=== PATIENT | male | born 1945 | race Asian ===

== ENCOUNTER 2024-05-16 09:53 | Day surgery (SDC) | payer OTHER, MEDICARE ==
[2024-05-16] MEDS: LEUPROLIDE ACETATE (ELIGARD) 22.5 MG SYRINGE SQ ONE (10:17)
[2024-05-16 11:07] VITALS: BP 136/71; PULSE 68; RESP 20; TEMP 97.9
== END 2024-05-16 10:35 | disposition home or self-care (01) ==
LOC: JONCNONCHE 09:53 → J7W 09:55 → JONCNONCHE 10:35
PROVIDERS: ATTEND Internal Medicine Hematology & Oncology
PROC: 3E013GC Introduction of Other Therapeutic Substance into Subcutaneous Tissue, Percutaneous Approach (ICD-10-PCS; principal; 2024-05-16)
DX: C61 Malignant neoplasm of prostate (principal); Z76.89 Persons encountering health services in other specified circumstances
CPT/HCPCS: 96372; J9217

== ENCOUNTER 2024-08-12 10:40 | Inpatient (IN) | payer OTHER, MEDICARE ==
[2024-08-12 10:47] VITALS: BMI 27.4
[2024-08-12 12:39] LABS: BASO % 0.7 % (0-2.0); EOS % 1.3 % (0-4.5); HEMATOCRIT 37.4 % (35.4-49); HEMOGLOBIN 12.2 GM/dL (11.7-16.9); LYMPH % 8.3 % (8-40); MCH 29.1 pg (25.7-33.7); MCHC 32.7 g/dl (32.0-35.9); MEAN CELL VOLUME 89.2 fl (80-96); MEAN PLT VOLUME 7.3 fl (7.5-11.1); MONO % 8.2 % (3.8-10.2); NEUT % 81.5 % (42.8-82.8); PLATELET COUNT 193 10^3/uL (134-434); RBC 4.19 M/mm3 (4.00-5.60); RDW 15.7 % (11.9-15.9); WHITE BLOOD COUNT 9.1 K/mm3 (4.0-10.0)
[2024-08-12 12:46] LABS: EPI CELLS 4 /uL (0-25.1); HYALINE CASTS 0 /uL (0-3.1); PH,URINE 5.5 (5.0-8.0); URINE APPEARANCE CLEAR; URINE BACTERIA 1 /uL (0-1359); URINE BILIRUBIN NEGATIVE (NEGATIVE); URINE COLOR RED; URINE GLUCOSE (UA) 2+ (NEGATIVE); URINE KETONE NEGATIVE (NEGATIVE); URINE LEUK ESTERASE TRACE (NEGATIVE); URINE NITRITE NEGATIVE (NEGATIVE); URINE PROTEIN 3+ (NEGATIVE); URINE RBC 72 /uL (0-23.9); URINE UROBILINOGEN 0.2 mg/dL (0.2-1.0); URINE WBC 12 /uL (0-25.8)
[2024-08-12 13:01] LABS: CHLORIDE 106 mmol/L (98-107); POTASSIUM 5.6 mmol/L (3.5-5.1); SODIUM 136 mmol/L (136-145)
[2024-08-12 13:02] LABS: PROTHROMBIN TIME (PATIENT) 11.3 SEC (9.7-13.0)
[2024-08-12 13:03] LABS: ALBUMIN 3.1 g/dl (3.4-5.0); ANION GAP 14 mmol/L (4-13); CO2 15 mmol/L (21-32); GLUCOSE,RANDOM 165 mg/dL (74-106); MAGNESIUM 3.6 mg/dL (1.8-2.4)
[2024-08-12 13:05] LABS: ACTIVATED PTT 23.8 SECONDS (25.2-36.5)
[2024-08-12 13:06] LABS: BLOOD UREA NITROGEN 123.5 mg/dL (7-18)
[2024-08-12 13:07] LABS: SGOT/AST 853 U/L (15-37); SGPT/ALT 612 U/L (13-61)
[2024-08-12 13:08] LABS: BILIRUBIN,TOTAL 0.7 mg/dL (0.2-1); TOT PROT 6.5 g/dl (6.4-8.2)
[2024-08-12 13:09] LABS: ALK PHOS 80 U/L (45-117); CREATININE 12.8 mg/dL (0.55-1.3)
[2024-08-12] MEDS ORDERED: SODIUM ZIRCONIUM CYCLOSILICATE (LOKELMA) 5 GM PACKET PO ONE (13:15)
[2024-08-12] MEDS: DEXTROSE 50%-WATER - 25 GM/50 ML VIAL IVPUSH ONE (13:16)
[2024-08-12] MEDS: INSULIN REGULAR HUMAN 100 UNITS/ML *VIAL IVPUSH ONE (13:16)
[2024-08-12] MEDS: SODIUM CHLORIDE 0.9% 500 ML INFUS.BAG IV ONE (13:16)
[2024-08-12] MEDS: CALCIUM GLUCONATE 10% - 1,000 MG/10 ML VIAL IVPUSH ONE (13:16)
[2024-08-12] MEDS ORDERED: SODIUM ZIRCONIUM CYCLOSILICATE (LOKELMA) 10 GM PACKET ONE (13:41)
[2024-08-12] MEDS: SODIUM ZIRCONIUM CYCLOSILICATE (LOKELMA) 5 GM PACKET PO ONE (13:43)
[2024-08-12 13:55] LABS: PHOSPHOROUS 9.6 mg/dL (2.5-4.9)
[2024-08-12 14:05] LABS: VENOUS BASE EXCESS -15.6 mmol/L (-2-2); VENOUS O2 SATURATION 37.2 % (70-80); VENOUS PCO2 39.7 mmHg (38-52)
[2024-08-12 14:06] LABS: VENOUS PH 7.127 (7.310-7.410)
[2024-08-12] MEDS: SODIUM CHLORIDE 500 ML IV STA (17:40)
[2024-08-12] MEDS: SODIUM BICARBONATE 8.4% 50 MEQ/50 ML DISP.SYRIN IVPUSH SCH (18:56)
[2024-08-12] MEDS ORDERED: SODIUM BICARBONATE 8.4% 50 MEQ/50 ML DISP.SYRIN IVPUSH SCH (20:30)
[2024-08-12] MEDS: SODIUM BICARBONATE 8.4% 50 MEQ/50 ML VIAL IVPUSH SCH (22:18)
[2024-08-12] MEDS: SODIUM CHLORIDE 1,000 ML IV SCH (22:36)
[2024-08-12 22:44] LABS: HEMATOCRIT 31.7 % (35.4-49); HEMOGLOBIN 10.6 GM/dL (11.7-16.9); MCH 29.3 pg (25.7-33.7); MCHC 33.4 g/dl (32.0-35.9); MEAN CELL VOLUME 87.7 fl (80-96); MEAN PLT VOLUME 7.4 fl (7.5-11.1); PLATELET COUNT 177 10^3/uL (134-434); RBC 3.61 M/mm3 (4.00-5.60); RDW 15.8 % (11.9-15.9)
[2024-08-12] MEDS: SODIUM BICARBONATE 650 MG TABLET PO SCH (22:46)
[2024-08-12] MEDS: CARVEDILOL 12.5 MG TABLET (FP) PO SCH (22:46)
[2024-08-12] MEDS: HEPARIN NA (PORCINE) 5,000 UNITS/ML 1ML VIAL SQ SCH (22:47)
[2024-08-12 23:22] LABS: CHLORIDE 110 mmol/L (98-107); POTASSIUM 4.9 mmol/L (3.5-5.1); SODIUM 139 mmol/L (136-145)
[2024-08-12 23:24] LABS: CALCIUM 8.3 mg/dL (8.5-10.1)
[2024-08-12 23:25] LABS: ALBUMIN 2.5 g/dl (3.4-5.0); ANION GAP 11 mmol/L (4-13); CO2 18 mmol/L (21-32); GLUCOSE,RANDOM 151 mg/dL (74-106)
[2024-08-12 23:28] LABS: SGPT/ALT 523 U/L (13-61)
[2024-08-12 23:29] LABS: BILIRUBIN,TOTAL 0.6 mg/dL (0.2-1); BLOOD UREA NITROGEN 132.7 mg/dL (7-18); CREATININE 13.1 mg/dL (0.55-1.3); SGOT/AST 697 U/L (15-37); TOT PROT 5.3 g/dl (6.4-8.2)
[2024-08-12 23:31] LABS: ALK PHOS 77 U/L (45-117)
[2024-08-13 00:12] LABS: HIV INTERPRETATION NEGATIVE (NEGATIVE)
[2024-08-13] MEDS: SODIUM BICARBONATE 8.4% - 150 MEQ in DEXTROSE 5%-WATER - 950 ML IVPB SCH (04:10)
[2024-08-13] MEDS: SODIUM CHLORIDE 0.45% 1,000 ML IV SCH (04:10)
[2024-08-13 06:13] LABS: ARTERIAL BLD GAS O2 SATURATION 96.2 % (95-98); ARTERIAL BLOOD GAS BASE EXCESS -13.4 mmol/L (-2-2); ARTERIAL BLOOD GAS PO2 96.7 mmHg (80-100); ARTERIAL BLOOD GAS pH 7.229 (7.350-7.450)
[2024-08-13 06:18] LABS: ALLENS TEST POSITIVE
[2024-08-13 06:31] LABS: HEMATOCRIT 29.5 % (35.4-49); HEMOGLOBIN 9.9 GM/dL (11.7-16.9); MCH 29.6 pg (25.7-33.7); MCHC 33.5 g/dl (32.0-35.9); MEAN CELL VOLUME 88.2 fl (80-96); MEAN PLT VOLUME 7.5 fl (7.5-11.1); PLATELET COUNT 174 10^3/uL (134-434); RBC 3.34 M/mm3 (4.00-5.60); RDW 15.5 % (11.9-15.9)
[2024-08-13 06:52] LABS: CHLORIDE 114 mmol/L (98-107); POTASSIUM 4.6 mmol/L (3.5-5.1); SODIUM 143 mmol/L (136-145)
[2024-08-13 06:56] LABS: ALBUMIN 2.4 g/dl (3.4-5.0)
[2024-08-13 06:57] LABS: ANION GAP 12 mmol/L (4-13); CO2 17 mmol/L (21-32); GLUCOSE,RANDOM 93 mg/dL (74-106)
[2024-08-13 06:59] LABS: SGPT/ALT 496 U/L (13-61)
[2024-08-13 07:00] LABS: SGOT/AST 618 U/L (15-37)
[2024-08-13 07:01] LABS: BILIRUBIN,TOTAL 0.6 mg/dL (0.2-1)
[2024-08-13 07:05] LABS: ALK PHOS 65 U/L (45-117)
[2024-08-13 07:31] LABS: MAGNESIUM 3.4 mg/dL (1.8-2.4)
[2024-08-13 08:45] LABS: BLOOD UREA NITROGEN 135.2 mg/dL (7-18); CREATININE 13.1 mg/dL (0.55-1.3); PHOSPHOROUS 8.2 mg/dL (2.5-4.9)
[2024-08-13] MEDS: ASPIRIN COATED 81 MG TABLET.EC PO SCH (09:40)
[2024-08-13] MEDS: SEVELAMER CARBONATE 800 MG TAB (FP) PO SCH (09:40)
[2024-08-13] MEDS: TAMSULOSIN HCL 0.4 MG CAP PO SCH (09:40)
[2024-08-13] MEDS: SODIUM ZIRCONIUM CYCLOSILICATE (LOKELMA) 5 GM PACKET PO SCH (09:41)
[2024-08-13] MEDS ORDERED: LIDOCAINE HCL 1%, 10 MG/ML (20ML VIAL) SQ ONE (11:30)
[2024-08-13] MEDS ORDERED: SODIUM CHLORIDE 250 ML IV PRN (11:44)
[2024-08-13] MEDS: LIDOCAINE HCL 1%, 10 MG/ML (50 mL VIAL) SQ ONE (13:11)
[2024-08-13] MEDS: HEPARIN NA (PORCINE) 5,000 UNITS/ML 1ML VIAL SQ ONE (13:11)
[2024-08-13] MEDS: LIDOCAINE HCL 1%, 10 MG/ML (20ML VIAL) SQ ONE (13:12)
[2024-08-13] MEDS ORDERED: SODIUM ZIRCONIUM CYCLOSILICATE (LOKELMA) 5 GM PACKET PO ONE (13:15)
[2024-08-13] MEDS: SODIUM CHLORIDE 1,000 ML IV SCH (17:59)
[2024-08-14 06:46] LABS: HEMATOCRIT 27.8 % (35.4-49); HEMOGLOBIN 9.3 GM/dL (11.7-16.9); MCH 29.5 pg (25.7-33.7); MCHC 33.6 g/dl (32.0-35.9); MEAN PLT VOLUME 7.6 fl (7.5-11.1); PLATELET COUNT 156 10^3/uL (134-434); RBC 3.16 M/mm3 (4.00-5.60); RDW 15.6 % (11.9-15.9); WHITE BLOOD COUNT 6.5 K/mm3 (4.0-10.0)
[2024-08-14 07:12] LABS: CHLORIDE 109 mmol/L (98-107); SODIUM 142 mmol/L (136-145)
[2024-08-14 07:14] LABS: CALCIUM 8.3 mg/dL (8.5-10.1)
[2024-08-14 07:16] LABS: ANION GAP 11 mmol/L (4-13); CO2 21 mmol/L (21-32); GLUCOSE,RANDOM 177 mg/dL (74-106); MAGNESIUM 2.6 mg/dL (1.8-2.4)
[2024-08-14 07:19] LABS: PHOSPHOROUS 6.2 mg/dL (2.5-4.9)
[2024-08-14 07:50] LABS: BLOOD UREA NITROGEN 100.8 mg/dL (7-18); CREATININE 10.3 mg/dL (0.55-1.3)
[2024-08-14 09:30] LABS: ALBUMIN 2.4 g/dl (3.4-5.0)
[2024-08-14 09:33] LABS: BILIRUBIN,DIRECT 0.2 mg/dL (0.0-0.2); SGOT/AST 415 U/L (15-37); SGPT/ALT 434 U/L (13-61)
[2024-08-14 09:35] LABS: ALK PHOS 55 U/L (45-117); BILIRUBIN,TOTAL 0.6 mg/dL (0.2-1); TOT PROT 4.9 g/dl (6.4-8.2)
[2024-08-14 10:30] LABS: CHLORIDE 109 mmol/L (98-107); POTASSIUM 3.8 mmol/L (3.5-5.1); SODIUM 139 mmol/L (136-145)
[2024-08-14 10:32] LABS: ANION GAP 9 mmol/L (4-13); BLOOD UREA NITROGEN 95.9 mg/dL (7-18); CALCIUM 7.8 mg/dL (8.5-10.1); CO2 21 mmol/L (21-32); GLUCOSE,RANDOM 194 mg/dL (74-106)
[2024-08-14 10:52] LABS: CREATININE 10.5 mg/dL (0.55-1.3)
[2024-08-14] MEDS ORDERED: SODIUM CHLORIDE 250 ML IV PRN (15:31)
[2024-08-14] MEDS: INSULIN ASPART SLIDING SCALE (NOVOLOG) 1 VIAL SQ SCH (17:59)
[2024-08-14] MEDS: DEXTROSE 5%-NORMAL SALINE 1,000 ML IV SCH (18:11)
[2024-08-15 11:08] LABS: HEMATOCRIT 27.3 % (35.4-49); HEMOGLOBIN 9.2 GM/dL (11.7-16.9); MCH 29.4 pg (25.7-33.7); MCHC 33.6 g/dl (32.0-35.9); MEAN CELL VOLUME 87.6 fl (80-96); MEAN PLT VOLUME 7.7 fl (7.5-11.1); PLATELET COUNT 169 10^3/uL (134-434); RBC 3.12 M/mm3 (4.00-5.60); RDW 16.1 % (11.9-15.9); WHITE BLOOD COUNT 7.1 K/mm3 (4.0-10.0)
[2024-08-15 11:43] LABS: CHLORIDE 112 mmol/L (98-107); POTASSIUM 3.9 mmol/L (3.5-5.1); SODIUM 142 mmol/L (136-145)
[2024-08-15 11:46] LABS: ANION GAP 16 mmol/L (4-13); CALCIUM 7.8 mg/dL (8.5-10.1); CO2 15 mmol/L (21-32); GLUCOSE,RANDOM 135 mg/dL (74-106)
[2024-08-15 11:48] LABS: BLOOD UREA NITROGEN 110.4 mg/dL (7-18)
[2024-08-15 11:51] LABS: CREATININE 11.6 mg/dL (0.55-1.3)
[2024-08-15 12:15] LABS: CHLORIDE 109 mmol/L (98-107); SODIUM 142 mmol/L (136-145)
[2024-08-15 12:26] LABS: ALBUMIN 2.3 g/dl (3.4-5.0); ANION GAP 11 mmol/L (4-13); BILIRUBIN,DIRECT 0.2 mg/dL (0.0-0.2); BLOOD UREA NITROGEN 92.6 mg/dL (7-18); CALCIUM 8.3 mg/dL (8.5-10.1); CO2 22 mmol/L (21-32); CREATININE 9.9 mg/dL (0.55-1.3); GLUCOSE,RANDOM 91 mg/dL (74-106)
[2024-08-15 12:28] LABS: BILIRUBIN,TOTAL 0.5 mg/dL (0.2-1); SGOT/AST 258 U/L (15-37); SGPT/ALT 378 U/L (13-61); TOT PROT 5.2 g/dl (6.4-8.2)
[2024-08-15 12:49] LABS: ALK PHOS 51 U/L (45-117)
[2024-08-15 18:09] LABS: C-ANCA <1:20 titer (Neg:<1:20)
[2024-08-15 20:09] LABS: ANTIGLOMERULAR BASEMENT MEN.AB <0.2 units (0.0-0.9)
[2024-08-16 07:00] LABS: CHLORIDE 107 mmol/L (98-107); SODIUM 141 mmol/L (136-145)
[2024-08-16 07:03] LABS: ANION GAP 10 mmol/L (4-13); BLOOD UREA NITROGEN 81.9 mg/dL (7-18); CO2 24 mmol/L (21-32); GLUCOSE,RANDOM 132 mg/dL (74-106)
[2024-08-16 07:14] LABS: CREATININE 9.8 mg/dL (0.55-1.3)
[2024-08-16] MEDS ORDERED: DOCUSATE SODIUM 100 MG CAPSULE (FP) PO PRN (11:30)
[2024-08-16] MEDS: FUROSEMIDE 40 MG/4 ML INJECTABLE VIAL IVPUSH ONE (13:29)
[2024-08-16] MEDS: ALBUTEROL SO4 2.5/IPRATROPIUM 0.5 INH SOL 3 ML VIAL.NEB. NEB PRN (21:56)
[2024-08-16] MEDS: ALBUTEROL SO4 HFA INHALER IH PRN (21:56)
[2024-08-17 08:09] LABS: BASO % 0.4 % (0-2.0); EOS % 5.3 % (0-4.5); HEMOGLOBIN 8.4 GM/dL (11.7-16.9); LYMPH % 10.7 % (8-40); MCH 29.9 pg (25.7-33.7); MCHC 33.5 g/dl (32.0-35.9); MEAN CELL VOLUME 89.1 fl (80-96); MEAN PLT VOLUME 7.5 fl (7.5-11.1); NEUT % 71.6 % (42.8-82.8); PLATELET COUNT 159 10^3/uL (134-434); RDW 15.8 % (11.9-15.9); WHITE BLOOD COUNT 6.3 K/mm3 (4.0-10.0)
[2024-08-17 08:24] LABS: CHLORIDE 106 mmol/L (98-107); SODIUM 139 mmol/L (136-145)
[2024-08-17 08:26] LABS: ALBUMIN 2.4 g/dl (3.4-5.0)
[2024-08-17 08:27] LABS: ANION GAP 7 mmol/L (4-13); BLOOD UREA NITROGEN 96.7 mg/dL (7-18); CO2 26 mmol/L (21-32); GLUCOSE,RANDOM 83 mg/dL (74-106)
[2024-08-17 08:30] LABS: SGOT/AST 126 U/L (15-37); SGPT/ALT 259 U/L (13-61)
[2024-08-17 08:31] LABS: BILIRUBIN,TOTAL 0.6 mg/dL (0.2-1); MAGNESIUM 2.3 mg/dL (1.8-2.4); TOT PROT 5.1 g/dl (6.4-8.2)
[2024-08-17 08:32] LABS: ALK PHOS 46 U/L (45-117)
[2024-08-17] MEDS: ALBUTEROL SO4 2.5/IPRATROPIUM 0.5 INH SOL 3 ML VIAL.NEB. NEB SCH (15:55)
[2024-08-18] MEDS: ACETAMINOPHEN 500 MG TABLET (FP) PO ONE (02:53)
[2024-08-18] MEDS ORDERED: SODIUM CHLORIDE 250 ML IV PRN (08:00)
[2024-08-18] MEDS: LIDOCAINE 4% PATCH TP SCH (21:08)
[2024-08-19] MEDS: LIDOCAINE PATCH REMOVAL MC SCH (05:18)
[2024-08-19 09:37] LABS: BASO % 0.5 % (0-2.0); EOS % 3.1 % (0-4.5); HEMATOCRIT 22.9 % (35.4-49); HEMOGLOBIN 7.5 GM/dL (11.7-16.9); LYMPH % 7.1 % (8-40); MCH 29.2 pg (25.7-33.7); MCHC 32.8 g/dl (32.0-35.9); MEAN CELL VOLUME 88.8 fl (80-96); MEAN PLT VOLUME 7.6 fl (7.5-11.1); MONO % 12.4 % (3.8-10.2); NEUT % 76.9 % (42.8-82.8); PLATELET COUNT 167 10^3/uL (134-434); RBC 2.58 M/mm3 (4.00-5.60); RDW 16.5 % (11.9-15.9); WHITE BLOOD COUNT 7.7 K/mm3 (4.0-10.0)
[2024-08-19 10:22] LABS: CHLORIDE 104 mmol/L (98-107); POTASSIUM 5.1 mmol/L (3.5-5.1); SODIUM 138 mmol/L (136-145)
[2024-08-19 10:28] LABS: ALBUMIN 2.6 g/dl (3.4-5.0); ANION GAP 11 mmol/L (4-13); BLOOD UREA NITROGEN 92.1 mg/dL (7-18); CALCIUM 8.1 mg/dL (8.5-10.1); CO2 23 mmol/L (21-32); GLUCOSE,RANDOM 104 mg/dL (74-106); MAGNESIUM 2.1 mg/dL (1.8-2.4)
[2024-08-19 10:31] LABS: SGOT/AST 88 U/L (15-37); SGPT/ALT 211 U/L (13-61)
[2024-08-19 10:33] LABS: BILIRUBIN,TOTAL 0.8 mg/dL (0.2-1); TOT PROT 5.6 g/dl (6.4-8.2)
[2024-08-19 10:34] LABS: ALK PHOS 45 U/L (45-117)
[2024-08-19 10:38] LABS: CREATININE 12.6 mg/dL (0.55-1.3)
[2024-08-19 16:21] LABS: RETICULOCYTES 2.11 % (0.5-1.5)
[2024-08-20] MEDS: CEFTRIAXONE 1 G/50 ML PREMIX 50 ML IVPB ONE (09:09)
[2024-08-20 10:12] LABS: BASO % 0.3 % (0-2.0); EOS % 0.8 % (0-4.5); HEMATOCRIT 21.1 % (35.4-49); LYMPH % 5.5 % (8-40); MCH 30.3 pg (25.7-33.7); MCHC 33.3 g/dl (32.0-35.9); MEAN CELL VOLUME 90.9 fl (80-96); MONO % 10.7 % (3.8-10.2); NEUT % 82.7 % (42.8-82.8); PLATELET COUNT 157 10^3/uL (134-434); RBC 2.32 M/mm3 (4.00-5.60); RDW 16.2 % (11.9-15.9); WHITE BLOOD COUNT 10.2 K/mm3 (4.0-10.0)
[2024-08-20 10:32] LABS: CHLORIDE 104 mmol/L (98-107); POTASSIUM 5.7 mmol/L (3.5-5.1); SODIUM 137 mmol/L (136-145)
[2024-08-20 10:35] LABS: CALCIUM 8.1 mg/dL (8.5-10.1)
[2024-08-20 10:36] LABS: ANION GAP 11 mmol/L (4-13); CO2 22 mmol/L (21-32); GLUCOSE,RANDOM 140 mg/dL (74-106); MAGNESIUM 2.3 mg/dL (1.8-2.4)
[2024-08-20 10:39] LABS: CREATININE 14.7 mg/dL (0.55-1.3); PHOSPHOROUS 7.4 mg/dL (2.5-4.9); SGOT/AST 71 U/L (15-37); SGPT/ALT 172 U/L (13-61)
[2024-08-20 10:40] LABS: BILIRUBIN,TOTAL 1.1 mg/dL (0.2-1)
[2024-08-20 10:41] LABS: TOT PROT 5.4 g/dl (6.4-8.2)
[2024-08-20 10:42] LABS: ALK PHOS 48 U/L (45-117)
[2024-08-20 11:04] LABS: ALBUMIN 2.4 g/dl (3.4-5.0)
[2024-08-20] MEDS: HEPARIN NA (PORCINE) 5,000 UNITS/ML 1ML VIAL IVPUSH ONE (12:15)
[2024-08-20] MEDS ORDERED: SODIUM CHLORIDE 250 ML IV PRN (12:34)
[2024-08-20] MEDS: EPOETIN ALFA-EPBX 4,000 UNIT/ML VIAL IVPUSH ONE (14:34)
[2024-08-21 07:36] LABS: BASO % 0.4 % (0-2.0); EOS % 1.3 % (0-4.5); LYMPH % 5.4 % (8-40); MCH 30.1 pg (25.7-33.7); MCHC 33.4 g/dl (32.0-35.9); MEAN CELL VOLUME 90.2 fl (80-96); MEAN PLT VOLUME 8.1 fl (7.5-11.1); MONO % 10.6 % (3.8-10.2); NEUT % 82.3 % (42.8-82.8); PLATELET COUNT 157 10^3/uL (134-434); RDW 16.3 % (11.9-15.9); WHITE BLOOD COUNT 9.2 K/mm3 (4.0-10.0)
[2024-08-21 07:47] LABS: HEMOGLOBIN 6.3 GM/dL (11.7-16.9)
[2024-08-21 07:55] LABS: CHLORIDE 104 mmol/L (98-107); POTASSIUM 4.2 mmol/L (3.5-5.1); SODIUM 141 mmol/L (136-145)
[2024-08-21 07:57] LABS: ALBUMIN 2.6 g/dl (3.4-5.0)
[2024-08-21 07:58] LABS: ANION GAP 12 mmol/L (4-13); CO2 25 mmol/L (21-32); GLUCOSE,RANDOM 153 mg/dL (74-106)
[2024-08-21 08:00] LABS: SGPT/ALT 136 U/L (13-61)
[2024-08-21 08:01] LABS: PHOSPHOROUS 5.3 mg/dL (2.5-4.9); SGOT/AST 56 U/L (15-37)
[2024-08-21 08:02] LABS: BILIRUBIN,TOTAL 0.9 mg/dL (0.2-1); TOT PROT 5.4 g/dl (6.4-8.2)
[2024-08-21 08:03] LABS: ALK PHOS 44 U/L (45-117)
[2024-08-21 08:08] LABS: BLOOD UREA NITROGEN 75.6 mg/dL (7-18); CREATININE 10.1 mg/dL (0.55-1.3)
[2024-08-21] MEDS: CEFTRIAXONE 1 G/50 ML PREMIX 50 ML IVPB SCH (09:05)
[2024-08-21] MEDS ORDERED: ACETAMINOPHEN 1000 MG/100 ML BAG IVPB ONE (16:00)
[2024-08-21] MEDS ORDERED: oxyCODONE HCL 5 MG TABLET PO PRN (16:06)
[2024-08-21] MEDS: ACETAMINOPHEN 1000 MG/100 ML BAG IVPB ONE (16:44)
[2024-08-21] MEDS: LIDOCAINE PATCH REMOVAL MC SCH (21:24)
[2024-08-22] MEDS: ACETAMINOPHEN 1000 MG/100 ML BAG IVPB PRN (01:51)
[2024-08-22 05:35] LABS: HEMATOCRIT 21.1 % (35.4-49); HEMOGLOBIN 7.1 GM/dL (11.7-16.9); MCH 29.8 pg (25.7-33.7); MCHC 33.7 g/dl (32.0-35.9); MEAN CELL VOLUME 88.4 fl (80-96); MEAN PLT VOLUME 8.3 fl (7.5-11.1); PLATELET COUNT 152 10^3/uL (134-434); RBC 2.39 M/mm3 (4.00-5.60); WHITE BLOOD COUNT 8.6 K/mm3 (4.0-10.0)
[2024-08-22 08:33] LABS: HEMATOCRIT 21.4 % (35.4-49); HEMOGLOBIN 7.1 GM/dL (11.7-16.9); MCH 29.5 pg (25.7-33.7); MCHC 33.4 g/dl (32.0-35.9); MEAN CELL VOLUME 88.3 fl (80-96); MEAN PLT VOLUME 8.5 fl (7.5-11.1); PLATELET COUNT 165 10^3/uL (134-434); RBC 2.42 M/mm3 (4.00-5.60); WHITE BLOOD COUNT 8.7 K/mm3 (4.0-10.0)
[2024-08-22 09:01] LABS: MAGNESIUM 2.2 mg/dL (1.8-2.4)
[2024-08-22] MEDS ORDERED: SODIUM CHLORIDE 250 ML IV PRN (09:02)
[2024-08-22 09:05] LABS: PHOSPHOROUS 7.5 mg/dL (2.5-4.9)
[2024-08-22 09:09] LABS: CHLORIDE 102 mmol/L (98-107); POTASSIUM 4.5 mmol/L (3.5-5.1); SODIUM 139 mmol/L (136-145)
[2024-08-22 09:11] LABS: CALCIUM 8.3 mg/dL (8.5-10.1)
[2024-08-22 09:12] LABS: ALBUMIN 2.4 g/dl (3.4-5.0); ANION GAP 14 mmol/L (4-13); CO2 22 mmol/L (21-32); GLUCOSE,RANDOM 131 mg/dL (74-106)
[2024-08-22 09:15] LABS: SGOT/AST 54 U/L (15-37); SGPT/ALT 121 U/L (13-61)
[2024-08-22 09:16] LABS: BILIRUBIN,TOTAL 0.8 mg/dL (0.2-1)
[2024-08-22 09:17] LABS: ALK PHOS 46 U/L (45-117); TOT PROT 5.4 g/dl (6.4-8.2)
[2024-08-22 09:36] LABS: CREATININE 11.8 mg/dL (0.55-1.3)
[2024-08-22] MEDS: EPOETIN ALFA-EPBX 10,000 UNIT/ML VIAL SQ ONE (15:57)
[2024-08-22] MEDS: FUROSEMIDE 40 MG/4 ML INJECTABLE VIAL IVPB ONE (17:17)
[2024-08-22] MEDS: methylPREDNISolone NA SUCC 40 MG/1 ML VIAL IVPUSH ONE ×2 (17:18→18:02)
[2024-08-22] MEDS: PANTOPRAZOLE SODIUM 40 MG VIAL IVPUSH SCH (17:18)
[2024-08-22 18:24] LABS: ARTERIAL BLD GAS O2 SATURATION 95.3 % (95-98); ARTERIAL BLOOD GAS BASE EXCESS -0.4 mmol/L (-2-2); ARTERIAL BLOOD GAS PO2 72.2 mmHg (80-100); ARTERIAL BLOOD GAS pH 7.453 (7.350-7.450)
[2024-08-22 18:29] LABS: ALLENS TEST POSITIVE
[2024-08-22] MEDS ORDERED: PIPERACILLIN/TAZOB 2.25 GM 2.25 GM in DEXTROSE 5%-WATER - 50 ML IVPB SCH (18:45)
[2024-08-22] MEDS: PIPERACILLIN/TAZOB 2.25 GM 2.25 GM/50 ML BAG IVPB SCH (19:39)
[2024-08-22 21:45] LABS: HEMATOCRIT 26.2 % (35.4-49); HEMOGLOBIN 8.8 GM/dL (11.7-16.9); MCH 29.2 pg (25.7-33.7); MCHC 33.7 g/dl (32.0-35.9); MEAN CELL VOLUME 86.7 fl (80-96); MEAN PLT VOLUME 8.1 fl (7.5-11.1); PLATELET COUNT 190 10^3/uL (134-434); RBC 3.03 M/mm3 (4.00-5.60); RDW 17.5 % (11.9-15.9)
[2024-08-23 09:42] LABS: HEMOGLOBIN 9.2 GM/dL (11.7-16.9); MCH 29.8 pg (25.7-33.7); MCHC 34.2 g/dl (32.0-35.9); MEAN CELL VOLUME 87.1 fl (80-96); MEAN PLT VOLUME 8.5 fl (7.5-11.1); PLATELET COUNT 215 10^3/uL (134-434); RDW 17.7 % (11.9-15.9); WHITE BLOOD COUNT 9.7 K/mm3 (4.0-10.0)
[2024-08-23] MEDS ORDERED: ACETAMINOPHEN 1000 MG/100 ML BAG IVPB PRN (09:47)
[2024-08-23 10:05] LABS: CHLORIDE 100 mmol/L (98-107); POTASSIUM 5.1 mmol/L (3.5-5.1); SODIUM 137 mmol/L (136-145)
[2024-08-23 10:15] LABS: ALBUMIN 2.4 g/dl (3.4-5.0); ANION GAP 12 mmol/L (4-13); BLOOD UREA NITROGEN 90.7 mg/dL (7-18); CALCIUM 8.4 mg/dL (8.5-10.1); CO2 25 mmol/L (21-32); GLUCOSE,RANDOM 246 mg/dL (74-106)
[2024-08-23 10:16] LABS: MAGNESIUM 2.3 mg/dL (1.8-2.4)
[2024-08-23] MEDS: FUROSEMIDE 40 MG/4 ML INJECTABLE VIAL IVPUSH ONE (10:17)
[2024-08-23 10:18] LABS: PHOSPHOROUS 8.3 mg/dL (2.5-4.9); SGOT/AST 34 U/L (15-37); SGPT/ALT 118 U/L (13-61)
[2024-08-23 10:19] LABS: TOT PROT 5.9 g/dl (6.4-8.2)
[2024-08-23 10:21] LABS: ALK PHOS 56 U/L (45-117)
[2024-08-23 10:36] LABS: ANISOCYTOSIS 0
[2024-08-23 10:37] LABS: PLATELET ESTIMATE ADEQUATE
[2024-08-23] MEDS: SODIUM ZIRCONIUM CYCLOSILICATE (LOKELMA) 5 GM PACKET PO SCH (13:24)
[2024-08-23] MEDS: FUROSEMIDE 100 MG/10 ML INJECTABLE VIAL IVPB ONE (18:09)
[2024-08-24] MEDS: PIPERACILLIN/TAZOB 2.25 GM 2.25 GM/50 ML BAG IVPB SCH (01:46)
[2024-08-24 08:15] LABS: BASO % 0.1 % (0-2.0); EOS % 0.6 % (0-4.5); HEMATOCRIT 25.1 % (35.4-49); HEMOGLOBIN 8.5 GM/dL (11.7-16.9); LYMPH % 5.4 % (8-40); MCH 29.7 pg (25.7-33.7); MCHC 33.7 g/dl (32.0-35.9); MEAN CELL VOLUME 88.1 fl (80-96); MEAN PLT VOLUME 8.3 fl (7.5-11.1); NEUT % 85.9 % (42.8-82.8); PLATELET COUNT 222 10^3/uL (134-434); RBC 2.84 M/mm3 (4.00-5.60); RDW 17.1 % (11.9-15.9); WHITE BLOOD COUNT 9.5 K/mm3 (4.0-10.0)
[2024-08-24 08:34] LABS: CHLORIDE 100 mmol/L (98-107); SODIUM 138 mmol/L (136-145)
[2024-08-24 08:48] LABS: ALBUMIN 2.3 g/dl (3.4-5.0); ANION GAP 13 mmol/L (4-13); CALCIUM 7.9 mg/dL (8.5-10.1); CO2 25 mmol/L (21-32); GLUCOSE,RANDOM 144 mg/dL (74-106); MAGNESIUM 2.4 mg/dL (1.8-2.4)
[2024-08-24 08:51] LABS: PHOSPHOROUS 8.8 mg/dL (2.5-4.9); SGOT/AST 28 U/L (15-37); SGPT/ALT 95 U/L (13-61)
[2024-08-24 08:52] LABS: BILIRUBIN,TOTAL 0.6 mg/dL (0.2-1)
[2024-08-24 08:53] LABS: ALK PHOS 47 U/L (45-117); TOT PROT 5.6 g/dl (6.4-8.2)
[2024-08-24 09:14] LABS: BLOOD UREA NITROGEN 106.8 mg/dL (7-18); CREATININE 12.6 mg/dL (0.55-1.3)
[2024-08-24] MEDS: FUROSEMIDE 40 MG/4 ML INJECTABLE VIAL IVPUSH ONE (11:26)
[2024-08-25 13:52] LABS: CHLORIDE 98 mmol/L (98-107); POTASSIUM 5.3 mmol/L (3.5-5.1); SODIUM 139 mmol/L (136-145)
[2024-08-25 13:55] LABS: ANION GAP 17 mmol/L (4-13); CALCIUM 7.9 mg/dL (8.5-10.1); CO2 23 mmol/L (21-32); GLUCOSE,RANDOM 183 mg/dL (74-106)
[2024-08-25 13:56] LABS: BLOOD UREA NITROGEN 124.6 mg/dL (7-18)
[2024-08-25 14:10] LABS: CREATININE 13.9 mg/dL (0.55-1.3)
[2024-08-25] MEDS: FUROSEMIDE 100 MG/10 ML INJECTABLE VIAL IVPB SCH (14:11)
[2024-08-25 14:59] LABS: HEMATOCRIT 29.3 % (35.4-49); HEMOGLOBIN 9.7 GM/dL (11.7-16.9); MCH 29.5 pg (25.7-33.7); MCHC 33.2 g/dl (32.0-35.9); MEAN CELL VOLUME 88.8 fl (80-96); MEAN PLT VOLUME 7.9 fl (7.5-11.1); PLATELET COUNT 249 10^3/uL (134-434); RDW 17.1 % (11.9-15.9); WHITE BLOOD COUNT 7.2 K/mm3 (4.0-10.0)
[2024-08-25 15:46] LABS: ANISOCYTOSIS 0; MACROCYTOSIS 0
[2024-08-25] MEDS: ALBUTEROL SO4 HFA INHALER IH SCH (17:36)
[2024-08-26] MEDS ORDERED: SODIUM CHLORIDE 250 ML IV PRN (06:59)
[2024-08-26 07:36] LABS: HEMATOCRIT 28.2 % (35.4-49); HEMOGLOBIN 9.5 GM/dL (11.7-16.9); MCH 29.5 pg (25.7-33.7); MCHC 33.6 g/dl (32.0-35.9); MEAN CELL VOLUME 87.8 fl (80-96); MEAN PLT VOLUME 7.8 fl (7.5-11.1); PLATELET COUNT 263 10^3/uL (134-434); RBC 3.21 M/mm3 (4.00-5.60); RDW 17.1 % (11.9-15.9); WHITE BLOOD COUNT 5.8 K/mm3 (4.0-10.0)
[2024-08-26 07:41] LABS: CHLORIDE 100 mmol/L (98-107); POTASSIUM 5.3 mmol/L (3.5-5.1); SODIUM 138 mmol/L (136-145)
[2024-08-26 07:43] LABS: CALCIUM 7.7 mg/dL (8.5-10.1)
[2024-08-26 07:45] LABS: ALBUMIN 2.4 g/dl (3.4-5.0); ANION GAP 14 mmol/L (4-13); CO2 24 mmol/L (21-32); GLUCOSE,RANDOM 103 mg/dL (74-106); MAGNESIUM 2.4 mg/dL (1.8-2.4)
[2024-08-26 07:47] LABS: SGOT/AST 20 U/L (15-37); SGPT/ALT 72 U/L (13-61)
[2024-08-26 07:48] LABS: ALK PHOS 42 U/L (45-117); BILIRUBIN,TOTAL 0.7 mg/dL (0.2-1)
[2024-08-26 07:49] LABS: TOT PROT 5.5 g/dl (6.4-8.2)
[2024-08-26 08:10] LABS: BLOOD UREA NITROGEN 131.1 mg/dL (7-18)
[2024-08-26 08:52] LABS: PHOSPHOROUS 9.4 mg/dL (2.5-4.9)
[2024-08-26 09:17] LABS: ANISOCYTOSIS 0; HELMET CELLS 0; HOWELL-JOLLY BODIES 0; MACROCYTOSIS 0; OVALOCYTE 0; ROULEAU 0; SICKELED CELLS 0; TARGET CELLS 0; TEAR DROP CELLS 0; TOXIC GRANULATION 0
[2024-08-26] MEDS ORDERED: ACETAMINOPHEN 1000 MG/100 ML BAG IVPB PRN (13:06)
[2024-08-26 17:06] LABS: CHLORIDE 100 mmol/L (98-107); POTASSIUM 4.6 mmol/L (3.5-5.1); SODIUM 138 mmol/L (136-145)
[2024-08-26 17:07] LABS: CALCIUM 7.9 mg/dL (8.5-10.1)
[2024-08-26 17:08] LABS: ANION GAP 14 mmol/L (4-13); CO2 25 mmol/L (21-32); GLUCOSE,RANDOM 149 mg/dL (74-106)
[2024-08-26 18:13] LABS: BLOOD UREA NITROGEN 129.2 mg/dL (7-18); CREATININE 14.2 mg/dL (0.55-1.3)
[2024-08-26 20:53] VITALS: RESP 18
[2024-08-27 07:20] LABS: HEMOGLOBIN 8.7 GM/dL (11.7-16.9); MCH 28.6 pg (25.7-33.7); MCHC 32.1 g/dl (32.0-35.9); MEAN CELL VOLUME 89.1 fl (80-96); MEAN PLT VOLUME 7.5 fl (7.5-11.1); PLATELET COUNT 255 10^3/uL (134-434); RBC 3.03 M/mm3 (4.00-5.60); RDW 16.7 % (11.9-15.9); WHITE BLOOD COUNT 5.8 K/mm3 (4.0-10.0)
[2024-08-27] MEDS ORDERED: LIDOCAINE HCL 1%, 10 MG/ML (20ML VIAL) ONE (07:23)
[2024-08-27 07:39] LABS: CHLORIDE 100 mmol/L (98-107); POTASSIUM 5.1 mmol/L (3.5-5.1); SODIUM 140 mmol/L (136-145)
[2024-08-27 07:44] LABS: ALBUMIN 2.3 g/dl (3.4-5.0); CALCIUM 7.9 mg/dL (8.5-10.1)
[2024-08-27 07:45] LABS: ANION GAP 15 mmol/L (4-13); CO2 24 mmol/L (21-32); GLUCOSE,RANDOM 131 mg/dL (74-106); MAGNESIUM 2.5 mg/dL (1.8-2.4)
[2024-08-27 07:47] LABS: SGPT/ALT 59 U/L (13-61)
[2024-08-27 07:48] LABS: BLOOD UREA NITROGEN 132.7 mg/dL (7-18); CREATININE 15.3 mg/dL (0.55-1.3)
[2024-08-27] MEDS ORDERED: MIDAZOLAM HCL 2 MG/2 ML SINGLE DOSE VIAL ONE (07:49)
[2024-08-27 07:50] LABS: ALK PHOS 40 U/L (45-117); BILIRUBIN,TOTAL 0.8 mg/dL (0.2-1); TOT PROT 5.3 g/dl (6.4-8.2)
[2024-08-27 07:51] LABS: SGOT/AST 13 U/L (15-37)
[2024-08-27] MEDS ORDERED: ONDANSETRON 4 MG/2 ML VIAL ONE (08:29)
[2024-08-27 08:30] LABS: PHOSPHOROUS 9.9 mg/dL (2.5-4.9)
[2024-08-27] MEDS ORDERED: ceFAZolin SODIUM 1 GM VIAL ONE (08:32)
[2024-08-27] MEDS: ceFAZolin SODIUM 1 GM VIAL IVPB ONE (08:33)
[2024-08-27] MEDS: LIDOCAINE HCL 1%, 10 MG/ML (20ML VIAL) NR ONE ×4 (08:39)
[2024-08-27] MEDS ORDERED: ONDANSETRON 4 MG/2 ML VIAL IVPUSH PRN (09:03)
[2024-08-27 09:14] LABS: ANISOCYTOSIS 0; HELMET CELLS 0; HOWELL-JOLLY BODIES 0; MACROCYTOSIS 0; OVALOCYTE 0; ROULEAU 0; SICKELED CELLS 0; TARGET CELLS 0; TEAR DROP CELLS 0; TOXIC GRANULATION 0
[2024-08-27] MEDS ORDERED: SODIUM CHLORIDE 250 ML IV PRN ×2 (09:23→11:06)
[2024-08-27] MEDS ORDERED: DOCUSATE SODIUM 100 MG CAPSULE (FP) PO PRN (09:23)
[2024-08-27] MEDS ORDERED: ACETAMINOPHEN 1000 MG/100 ML BAG IVPB PRN (09:23)
[2024-08-27] MEDS: TAMSULOSIN HCL 0.4 MG CAP PO SCH (09:54)
[2024-08-27] MEDS: PIPERACILLIN/TAZOB 2.25 GM 2.25 GM/50 ML BAG IVPB SCH (10:15)
[2024-08-27] MEDS: ALBUTEROL SO4 2.5/IPRATROPIUM 0.5 INH SOL 3 ML VIAL.NEB. NEB SCH (11:51)
[2024-08-27] MEDS: INSULIN ASPART SLIDING SCALE (NOVOLOG) 1 VIAL SQ SCH (11:54)
[2024-08-27] MEDS: PANTOPRAZOLE SODIUM 40 MG VIAL IVPUSH SCH (12:12)
[2024-08-27] MEDS: SEVELAMER CARBONATE 800 MG TAB (FP) PO SCH (12:13)
[2024-08-27] MEDS: CARVEDILOL 12.5 MG TABLET (FP) PO SCH (12:13)
[2024-08-27] MEDS: ASPIRIN COATED 81 MG TABLET.EC PO SCH (12:13)
[2024-08-27] MEDS: ALBUTEROL SO4 HFA INHALER IH SCH (12:15)
[2024-08-27] MEDS: LIDOCAINE 4% PATCH TP SCH (12:15)
[2024-08-27] MEDS: LIDOCAINE PATCH REMOVAL MC SCH (22:09)
[2024-08-28] MEDS ORDERED: SODIUM CHLORIDE 250 ML IV PRN (08:14)
[2024-08-28] MEDS: ALBUMIN HUMAN 25% 12.5 GM/50 ML VIAL IV SCH (09:00)
[2024-08-28 09:58] LABS: CHLORIDE 102 mmol/L (98-107); POTASSIUM 4.5 mmol/L (3.5-5.1); SODIUM 140 mmol/L (136-145)
[2024-08-28 10:02] LABS: ALBUMIN 2.3 g/dl (3.4-5.0); ANION GAP 11 mmol/L (4-13); CALCIUM 7.6 mg/dL (8.5-10.1); CO2 26 mmol/L (21-32); GLUCOSE,RANDOM 176 mg/dL (74-106)
[2024-08-28 10:05] LABS: SGOT/AST 15 U/L (15-37); SGPT/ALT 46 U/L (13-61)
[2024-08-28 10:06] LABS: BLOOD UREA NITROGEN 77.6 mg/dL (7-18); CREATININE 11.5 mg/dL (0.55-1.3); PHOSPHOROUS 8.4 mg/dL (2.5-4.9)
[2024-08-28 10:07] LABS: BILIRUBIN,TOTAL 0.8 mg/dL (0.2-1); TOT PROT 5.4 g/dl (6.4-8.2)
[2024-08-28 10:08] LABS: ALK PHOS 35 U/L (45-117)
[2024-08-28 10:42] LABS: HEMATOCRIT 25.2 % (35.4-49); MCH 28.7 pg (25.7-33.7); MCHC 31.7 g/dl (32.0-35.9); MEAN CELL VOLUME 90.5 fl (80-96); MEAN PLT VOLUME 7.9 fl (7.5-11.1); PLATELET COUNT 227 10^3/uL (134-434); RBC 2.79 M/mm3 (4.00-5.60); RDW 17.4 % (11.9-15.9); WHITE BLOOD COUNT 5.4 K/mm3 (4.0-10.0)
[2024-08-28 10:46] LABS: CHLORIDE 103 mmol/L (98-107); POTASSIUM 4.3 mmol/L (3.5-5.1); SODIUM 140 mmol/L (136-145)
[2024-08-28 10:47] LABS: CALCIUM 7.6 mg/dL (8.5-10.1)
[2024-08-28 10:48] LABS: ALBUMIN 2.2 g/dl (3.4-5.0); ANION GAP 11 mmol/L (4-13); BLOOD UREA NITROGEN 77.1 mg/dL (7-18); CO2 26 mmol/L (21-32); GLUCOSE,RANDOM 220 mg/dL (74-106); MAGNESIUM 2.2 mg/dL (1.8-2.4)
[2024-08-28 10:51] LABS: SGOT/AST 15 U/L (15-37); SGPT/ALT 43 U/L (13-61)
[2024-08-28 10:53] LABS: BILIRUBIN,TOTAL 0.8 mg/dL (0.2-1); CREATININE 11.4 mg/dL (0.55-1.3); TOT PROT 5.2 g/dl (6.4-8.2)
[2024-08-28 10:54] LABS: ALK PHOS 37 U/L (45-117)
[2024-08-28 12:17] VITALS: PULSE 80
[2024-08-28 12:34] VITALS: BP 138/76
[2024-08-28] MEDS: PANTOPRAZOLE 40 MG TABLET PO SCH (12:54)
[2024-08-28] MEDS: TAMSULOSIN HCL 0.4 MG CAP PO SCH (12:54)
[2024-08-28 14:45] VITALS: TEMP 138
== END 2024-08-28 14:49 | DRG 682 ==
LOC: JER 10:40 → JERBED 13:22 → J4S 18:35
PROVIDERS: ADMIT Internal Medicine; ATTEND Internal Medicine
PROC: 02HV33Z Insertion of Infusion Device into Superior Vena Cava, Percutaneous Approach (ICD-10-PCS; principal; 2024-08-13)
PROC: B548ZZA Ultrasonography of Superior Vena Cava, Guidance (ICD-10-PCS; 2024-08-13)
PROC: 5A1D70Z Performance of Urinary Filtration, Intermittent, Less than 6 Hours Per Day (ICD-10-PCS; 2024-08-13)
PROC: 06HM33Z Insertion of Infusion Device into Right Femoral Vein, Percutaneous Approach (ICD-10-PCS; 2024-08-20)
PROC: B54BZZA Ultrasonography of Right Lower Extremity Veins, Guidance (ICD-10-PCS; 2024-08-20)
PROC: 30233N1 Transfusion of Nonautologous Red Blood Cells into Peripheral Vein, Percutaneous Approach (ICD-10-PCS; 2024-08-22)
PROC: 06HM33Z Insertion of Infusion Device into Right Femoral Vein, Percutaneous Approach (ICD-10-PCS; 2024-08-26)
PROC: B54BZZA Ultrasonography of Right Lower Extremity Veins, Guidance (ICD-10-PCS; 2024-08-26)
PROC: 02H633Z Insertion of Infusion Device into Right Atrium, Percutaneous Approach (ICD-10-PCS; 2024-08-27)
PROC: B548ZZA Ultrasonography of Superior Vena Cava, Guidance (ICD-10-PCS; 2024-08-27)
DX: I12.9 Hypertensive chronic kidney disease with stage 1 through stage 4 chronic kidney disease, or unspecified chronic kidney disease (principal); J96.01 Acute respiratory failure with hypoxia; N17.0 Acute kidney failure with tubular necrosis; E87.20 Acidosis, unspecified; M62.82 Rhabdomyolysis; D62 Acute posthemorrhagic anemia; J98.11 Atelectasis; I25.10 Atherosclerotic heart disease of native coronary artery without angina pectoris; E87.5 Hyperkalemia; J44.9 Chronic obstructive pulmonary disease, unspecified; K76.9 Liver disease, unspecified; K75.9 Inflammatory liver disease, unspecified; E11.22 Type 2 diabetes mellitus with diabetic chronic kidney disease; R74.01 Elevation of levels of liver transaminase levels; M79.81 Nontraumatic hematoma of soft tissue; E83.39 Other disorders of phosphorus metabolism; K80.20 Calculus of gallbladder without cholecystitis without obstruction
CPT/HCPCS: 0241U-QW; 36415; 36430; 36600; 70450-TC; 71045-TC-FY; 71250-TC; 72131-TC; 74176-TC; 76000-TC-FY; 76705-TC; 76775-TC; 80048; 80053; 80076; 81003; 82105; 82272; 82550; 82553; 82570; 82607; 82728; 82803; 82962; 83516; 83520; 83540; 83550; 83605; 83735; 84100; 84153; 84155; 84165; 84300; 84443; 84484; 85025; 85027; 85045; 85610; 85730; 86038; 86225; 86256; 86704; 86803; 86850; 86900; 86901; 86922; 87040; 87086; 87340; 87389; 87517; 93005; 93010; 93306-TC; 94640; 94760; 97116-GP; 97161-GP; 99285-25; C1750; J0131; J1644; P9058; Q5106

== ENCOUNTER 2024-11-19 12:37 | Day surgery (SDC) | payer OTHER, MEDICARE ==
[2024-11-19 13:50] LABS: BASO % 0.8 % (0-2.0); EOS % 3.7 % (0-4.5); HEMATOCRIT 40.4 % (35.4-49); LYMPH % 31.9 % (8-40); MCH 29.9 pg (25.7-33.7); MCHC 32.3 g/dl (32.0-35.9); MEAN CELL VOLUME 92.7 fl (80-96); MEAN PLT VOLUME 7.1 fl (7.5-11.1); MONO % 10.9 % (3.8-10.2); NEUT % 52.7 % (42.8-82.8); PLATELET COUNT 281 10^3/uL (134-434); RBC 4.36 M/mm3 (4.00-5.60); RDW 16.7 % (11.9-15.9); WHITE BLOOD COUNT 5.9 K/mm3 (4.0-10.0)
[2024-11-19 14:16] LABS: CHLORIDE 98 mmol/L (98-107); POTASSIUM 4.2 mmol/L (3.5-5.1); SODIUM 135 mmol/L (136-145)
[2024-11-19 14:17] LABS: BLOOD UREA NITROGEN 39.1 mg/dL (7-18)
[2024-11-19 14:18] LABS: ALBUMIN 3.5 g/dl (3.4-5.0); ANION GAP 7 mmol/L (4-13); CALCIUM 10.1 mg/dL (8.5-10.1); CO2 30 mmol/L (21-32); GLUCOSE,RANDOM 76 mg/dL (74-106)
[2024-11-19 14:21] LABS: BILIRUBIN,DIRECT 0.2 mg/dL (0.0-0.2); SGOT/AST 21 U/L (15-37); SGPT/ALT 21 U/L (13-61)
[2024-11-19 14:22] LABS: CREATININE 3.5 mg/dL (0.55-1.3)
[2024-11-19 14:23] LABS: BILIRUBIN,TOTAL 1.1 mg/dL (0.2-1); TOT PROT 7.7 g/dl (6.4-8.2)
[2024-11-19 14:24] LABS: ALK PHOS 99 U/L (45-117)
[2024-11-19] MEDS: LEUPROLIDE ACETATE (ELIGARD) 22.5 MG SYRINGE SQ ONE (14:42)
[2024-11-19 17:22] VITALS: BP 120/60; PULSE 60; RESP 20; TEMP 98.9
== END 2024-11-19 15:00 | disposition home or self-care (01) ==
LOC: J7W 12:37 → JONCCHEMO 12:37
PROVIDERS: ATTEND Internal Medicine Hematology & Oncology
PROC: 3E013GC Introduction of Other Therapeutic Substance into Subcutaneous Tissue, Percutaneous Approach (ICD-10-PCS; principal; 2024-11-19)
DX: C61 Malignant neoplasm of prostate (principal)
CPT/HCPCS: 36415; 80053; 80076; 84153; 85025; 96372; J9217